=== PATIENT | female | born 1990 | race Caucasian/White ===

== ENCOUNTER 2023-08-25 22:15 | Emergency (ER) | payer BC ==
[~2023-08-25] VITALS: Ht 165.1 cm; Wt 65.9 kg
[2023-08-25 23:46] LABS: MEAN CORPUSCULAR VOLUME 91.8 FL (78-98)
[2023-08-25 23:48] LABS: BASOPHILS % (AUTO) 0.2 % (0-1); EOSINOPHILS % (AUTO) 0.2 % (0-6); HEMATOCRIT 43.1 % (35.0-45.0); HEMOGLOBIN 14.6 g/dl (12.0-16.0); LYMPHOCYTES # (AUTO) 0.2 X10'3 (1.1-4.8); LYMPHOCYTES % (AUTO) 2.5 % (21-51); MEAN CORPUSCULAR HEMOGLOBIN 31.2 PG (27.0-31.0); MEAN CORPUSCULAR HGB CONC 33.9 g/dL (33.0-36.5); MEAN PLATELET VOLUME 8.5 FL (7.4-10.4); MONOCYTES # (AUTO) 0.4 X10'3 (0-0.9); MONOCYTES % (AUTO) 4.6 % (2-12); NEUTROPHILS # (AUTO) 8.7 X10'3 (1.8-7.7); NEUTROPHILS % (AUTO) 92.5 % (42-75); PLATELET COUNT 246 X10'3 (140-440); RED BLOOD COUNT 4.69 X10'6 (4.20-5.60); RED CELL DISTRIBUTION WIDTH 12.4 % (11.5-14.5); WHITE BLOOD COUNT 9.5 X10'3 (4.5-11.0)
[2023-08-26] LABS: ALANINE AMINOTRANSFERASE 39 U/L (12-78); ALBUMIN/GLOBULIN RATIO 1.1 (1.1-1.5); ALKALINE PHOSPHATASE 69 IU/L (46-116); ANION GAP 16 (8-16); ASPARTATE AMINO TRANSFERASE 42 U/L (10-37); BILIRUBIN,TOTAL 1.2 MG/DL (0.1-1.0); BLOOD UREA NITROGEN 22 MG/DL (7-18); BUN/CREATININE RATIO 20.8 (10.0-20.0); CALCIUM 9.1 MG/DL (8.5-10.1); CHLORIDE 102 MMOL/L (99-107); CREATININE 1.06 MG/DL (0.40-0.90); GLUCOSE 115 MG/DL (70-104); LIPASE 30 U/L (16-77); POTASSIUM 3.9 MMOL/L (3.5-5.1); SODIUM 139 MMOL/L (135-145); TOTAL CARBON DIOXIDE 21.2 MMOL/L (24-32); TOTAL PROTEIN 7.8 G/DL (6.4-8.2); eCRCL 67 ML/MIN; eGFR 59 ML/MIN
[2023-08-26] MEDS: normal saline 1000ML IV soln IVB ONE ×3 (00:29→02:33)
[2023-08-26 01:12] LABS: TOTAL CELLS COUNTED 100
[2023-08-26 01:13] LABS: PLATELET ESTIMATE NORMAL
[2023-08-26] MEDS: acetaminophen 325mg tablet PO ONE (02:20)
[2023-08-26] MEDS: magnesium 2GM in 50ml NS 50 ML IV ONE ×2 (02:26→04:09)
[2023-08-26] MEDS: ondansetron/PF 4mg/2ml inj IV ONE (02:51)
[2023-08-26 03:03] LABS: URINE HCG NEGATIVE (NEG)
[2023-08-26 03:19] LABS: URINE AMPHETAMINE SCREEN NEGATIVE (Neg); URINE BARBITUATE SCREEN NEGATIVE (Neg); URINE BENZODIAZEPINES SCREEN NEGATIVE (Neg); URINE CANNABINOID SCREEN NEGATIVE (Neg); URINE COCAINE SCREEN NEGATIVE (Neg); URINE METHADONE SCREEN NEGATIVE (Neg); URINE OPIATE SCREEN NEGATIVE (Neg); URINE PHENCYCLIDINE SCREEN NEGATIVE (Neg)
[2023-08-26 03:23] LABS: BILIRUBIN,URINE NEGATIVE (Neg); CLARITY,URINE CLEAR (Clear); COLOR,URINE YELLOW (Yellow); GLUCOSE, URINE NEGATIVE (Neg); KETONES,URINE >=80 mg/dl (Neg); LEUKOCYTE ESTERASE ,URINE NEGATIVE (Neg); NITRITES, URINE NEGATIVE (Neg); OCCULT BLOOD,URINE NEGATIVE (Neg); PROTEIN,URINE NEGATIVE (Neg); UROBILINOGEN,URINE 0.2 E.U/dL (0.2-1.0)
[2023-08-26 03:27] LABS: UA COLLECTION TYPE URINAL
[2023-08-26 03:30] LABS: CREATINE KINASE 616 U/L (26-192); ETHANOL < 10 MG/DL (<10); MAGNESIUM 1.3 MG/DL (1.5-2.4)
[2023-08-26 04:10] VITALS: PULSE 88; RESP 14; O2SAT 93
[2023-08-26 04:18] VITALS: BP 105/51
[2023-08-26 04:42] VITALS: TEMP 98.9
== END 2023-08-26 04:51 | disposition home or self-care (01) ==
LOC: ER 22:16
DX: J11.1 Influenza due to unidentified influenza virus with other respiratory manifestations (principal); Z20.822 Contact with and (suspected) exposure to COVID-19; E86.0 Dehydration; E83.42 Hypomagnesemia; R25.2 Cramp and spasm; N23 Unspecified renal colic; Z98.890 Other specified postprocedural states
CPT/HCPCS: 36415; 71045; 80053; 80305; 80320; 81003; 81025; 82550; 83690; 83735; 83874; 85007; 85025; 87502; 87503; 87811; 96361; 96365; 96366; 96375; 99284; J2405; J3475; J7030